=== PATIENT | female | born 1985 | race Caucasian/White ===

== ENCOUNTER 2017-09-12 22:00 | Emergency (ER) | payer MEDICAID ==
[2017-09-12] MEDS: HYDROCODONE/APAP (5/325) TAB PO (23:44)
[2017-09-12] MEDS: KETOROLAC 60 MG INJ IM (23:44)
== END 2017-09-13 01:02 | disposition home or self-care (01) ==
LOC: FTE 22:00
DX: R51 Headache (principal)
CPT/HCPCS: 96372; 99284-25